=== PATIENT | male | born 1990 ===

== ENCOUNTER 2017-10-17 16:05 | Emergency (ER) | payer SELFPAY ==
--- NOTE | 2017-10-17 17:09 | UC ---
Skin Complaint HPI - HPI Summary HPI Summary: 26 yo male presents with skin tag to perineum noticed 3 days ago. Mildly tender. Says that he thinks it is infected because it's black now. Denies fever or chills. - History of Current Complaint Chief Complaint: [facility] Time Seen by Provider: 10/17/17 17:09 Stated Complaint: INFLAMED SKIN TAG Hx Obtained From: Patient Onset/Duration: Sudden Onset Onset Severity: Mild Current Severity: Mild Pain Intensity: 4 Pain Scale Used: 0-10 Numeric - Allergy/Home Medications Allergies/Adverse Reactions: Allergies Allergy/AdvReac Type Severity Reaction Status Date / Time No Known Allergies Allergy Verified 10/17/17 17:06 Review of Systems Constitutional: Negative Skin: Other - Skin tag perineum Respiratory: Negative Cardiovascular: Negative Neurovascular: Negative Neurological: Negative Psychological: Negative All Other Systems Reviewed And Are Negative: Yes PMH/Surg Hx/FS Hx/Imm Hx - Additional Past Medical History Additional PMH: None Previously Healthy: Yes - Surgical History Surgical History: None - Family History Known Family History: Positive: None - Social History Occupation: Employed Full-time Lives: Alone Alcohol Use: Occasionally Substance Use Type: Marijuana Smoking Status (MU): Never Smoked Tobacco Physical Exam - Summary Physical Exam Summary: GENERAL: NAD. WDWN. No pain distress. SKIN: Perineum: 3mm skin tag, black in color. Mildly TTP. No streaking, bleeding , or drainage. CHEST: No accessory muscle use. Breathing comfortably and in no distress. CV: Pulses intact NEURO: Alert. PSYCH: Age appropriate behavior. Triage Information Reviewed: Yes Vital Signs: Initial Vital Signs Temp 98.6 F 10/17/17 17:00 Pulse 73 10/17/17 17:00 Resp 16 10/17/17 17:00 BP 117/70 10/17/17 17:00 Pulse Ox 100 10/17/17 17:00 Course/Dx - Course Course Of Treatment: During the course of the exam, the skin tag fell off and pt experienced complete resolution of his symptoms. Suspect this was a strangulated skin tag. - Diagnoses Provider Diagnoses: Skin tag perineum Discharge - Sign-Out/Discharge Documenting (check all that apply): Patient Departure - Discharge Plan Condition: Stable Disposition: HOME Referrals: No Primary Care Phys,NOPCP [Primary Care Provider] - Additional Instructions: If you develop a fever, shortness of breath, chest pain, new or worsening symptoms - please call your PCP or go to the ED. - Billing Disposition and Condition Condition: STABLE Disposition: Home
== END 2017-10-17 17:25 | disposition home or self-care (01) ==
LOC: UCEAST 16:05
DX: L91.8 Other hypertrophic disorders of the skin (principal)
CPT/HCPCS: 99201; G0463